=== PATIENT | female | born 1935 | race African-American/Black ===

== ENCOUNTER 2020-03-02 03:38 | Emergency (ER) | payer OTHER ==
[~2020-03-02] VITALS: Ht 160 cm; Wt 49.9 kg
--- NOTE | 2020-03-02 03:41 | NUR ---
BIBRA 860 FROM A LANDROMAT. PT SEEMS CONFUSED AND UNABLE TO PROVIDE A DETAILED MEDICAL HX. CURRENTLY DENIED ANY PAIN OR DISCOMFORT; PT TO BED 11, AOX1, DENIES ANY SOB/CP. VSS NAD NOTED, PENDING ER PROVIDER EVAL
--- NOTE | 2020-03-02 04:15 | NUR ---
PER RA PT M[place]IVING AT [address] [id number] CALLED [facility] TO INQUIRE W. NO ANSWER.
[2020-03-02 04:33] LABS: BASOPHILS # (AUTO) 0.1 /CMM (0.0-0.2); BASOPHILS % (AUTO) 1.7 % (0.0-2.0); EOSINOPHILS % (AUTO) 0.1 % (0.0-6.0); HEMATOCRIT 45 % (33-45); HEMOGLOBIN 14.7 g/dL (11.5-14.8); LYMPHOCYTES # (AUTO) 0.4 /CMM (0.8-4.8); LYMPHOCYTES % (AUTO) 5.7 % (20.0-44.0); MEAN CORPUSCULAR HGB CONC 33 g/dl (31.0-36.0); MEAN CORPUSCULAR VOLUME 88 fL (82-100); MONOCYTES # (AUTO) 0.3 /CMM (0.1-1.30); MONOCYTES % (AUTO) 4.7 % (2.0-12.0); NEUTROPHILS # (AUTO) 6.4 /CMM (1.8-8.9); NEUTROPHILS % (AUTO) 87.8 % (43.0-81.0); PLATELET COUNT (AUTO) 202 /CMM (150-450); RED BLOOD CELL COUNT(AUTO) 5.08 MIL/uL (4.0-5.2); WHITE BLOOD COUNT (AUTO) 7.3 K/uL (4.3-11.0)
[2020-03-02 04:43] LABS: BILIRUBIN,URINE NEGATIVE (NEGATIVE); BLOOD, URINE TRACE-INTA Ery/uL (NEGATIVE); COLOR,URINE YELLOW (YELLOW); KETONES,URINE NEGATIVE (NEGATIVE); LEUKOCYTE ESTERASE ,URINE TRACE (NEGATIVE); NITRITE, URINE NEGATIVE (NEGATIVE); PH,URINE 6.5 (5.0-8.0); PROTEIN,URINE TRACE mg/dl (NEGATIVE); UGLUCOSE NEGATIVE (NEGATIVE); UROBILINOGEN,URINE 0.2 EU/dL (0.2)
[2020-03-02 04:43] LABS: CALCIUM, SERUM 10.3 mg/dL (8.5-10.1); CARBON DIOXIDE 26 mmol/L (21-32); CHLORIDE 102 mmol/L (98-107); CREATININE 0.9 mg/dL (0.6-1.3); GLUCOSE 112 mg/dL (74-106); POTASSIUM 3.7 mmol/L (3.5-5.1); SERUM AMMONIA 7 umol/L (11-32); SODIUM SERUM 140 mmol/L (136-145); UREA NITROGEN, BLOOD 17 mg/dL (7-18)
[2020-03-02 04:48] LABS: ACETAMINOPHEN < 10 ug/ml (10-30); ALANINE AMINOTRANSFERASE 22 U/L (12-78); ALCOHOL, BLOOD < 3 mg/dL (0-0); ALKALINE PHOSPHATASE 88 U/L (46-116); ASPARTATE AMINOTRANSFERASE 25 U/L (15-37); BILIRUBIN,DIRECT 0.2 mg/dL (0.0-0.2); BILIRUBIN,TOTAL 0.7 mg/dL (0.2-1.0); TOTAL PROTEIN, SERUM 9.2 g/dL (6.4-8.2)
[2020-03-02 04:55] LABS: THYROID STIMULATING HORMONE 2.877 uIU/mL (0.358-3.74)
[2020-03-02 05:00] LABS: APPEARANCE,URINE HAZY (CLEAR)
[2020-03-02 05:02] LABS: RBC,URINE 0-2 /HPF (0-2)
[2020-03-02 05:03] LABS: BACTERIA,URINE None seen /HPF (None Seen); SQUAMOUS EPITHELIAL CELL,UR Few /HPF (None Seen)
--- NOTE | 2020-03-02 05:39 | NUR ---
CALLED MAINE FOR CT READ
--- NOTE | 2020-03-02 07:01 | NUR ---
Patient is resting comfortably in bed with eyes closed. Easily aroused. VSS
--- NOTE | 2020-03-02 08:14 | NUR ---
MD MADE AWARE OF BLOOD PRESSURE
[2020-03-02] MEDS ORDERED: LISINOPRIL (10MG) 10 MG TABLET PO SCH (09:30)
--- NOTE | 2020-03-02 09:46 | NUR ---
SW GYPSY AT BEDSIDE
--- NOTE | 2020-03-02 10:05 | NUR ---
Patient is forgetful. Patient reports that she believes that she was in her room. Patient believes that she was in an assisted living facility. SW to attempt to find the proper facility for this patient.
--- NOTE | 2020-03-02 10:07 | NUR ---
Per nursing notes, patient was found near [facility]. [address] [facility], [place] [address] . SW to follow up with trust advisor.
--- NOTE | 2020-03-02 10:08 | NUR ---
Claudia from [facility]. [address] [place] [address] confirmed that this patient is a resident at the facility. Per Claudia, Claudia is unable to provide emergency contact number. This SW provided call back number for emergency contact to call this SW.
--- NOTE | 2020-03-02 10:09 | NUR ---
Patient Daughter Wild Galdamez called this SW back. SW explained the situation. Per Daughter, patient does have confusion and memory loss. Patient daughter to come to [facility].
--- NOTE | 2020-03-02 10:16 | NUR ---
PER JERAMY, SHE SPOKE TO THE DAUGHTER AND WILL PICK HER UP.
--- NOTE | 2020-03-02 10:21 | NUR ---
Dr. Han made aware patient daughter will burr picker patient. Daughter Wild is on her way. Patient is aware and stated "I will do anything for this not to happen to me, this makes me nervous." Patient and SW discussed possible plan of action to move in with daughter or move to an assisted living facility depending on what is needed.
--- NOTE | 2020-03-02 11:22 | NUR ---
katarzyna hamm [phone] daughter
--- NOTE | 2020-03-02 12:20 | NUR ---
IV removed. Catheter intact and site benign. Pressure and 4x4 applied to site. No bleeding noted. Patient discharged to home with daughter Wild Nuno [phone] in stable condition. Written and verbal after care instructions given. Patient verbalizes understanding of instruction.
[2020-03-02 12:22] VITALS: BP 154/89
== END 2020-03-02 12:23 | disposition home or self-care (01) ==
LOC: ER 03:40
DX: F03.90 Unspecified dementia, unspecified severity, without behavioral disturbance, psychotic disturbance, mood disturbance, and anxiety (principal); R41.0 Disorientation, unspecified; I10 Essential (primary) hypertension; Z98.890 Other specified postprocedural states
CPT/HCPCS: 36415; 70450-TC; 71045-TC; 80048-TC; 80076-TC; 81000-TC; 82140-TC; 84443-TC; 85025-TC; G0480

== ENCOUNTER 2020-10-11 17:52 | Inpatient (IN) | payer OTHER ==
[~2020-10-11] VITALS: Ht 157.5 cm; Wt 39.0 kg
--- NOTE | 2020-10-11 18:12 | NUR ---
CARI AND [employer] TO ER BED 12. PT AWAKE, ALERT BUT CONFUSED. NOT IN RESP DISTRESS. AMBULATORY. BROUGHT ON FOR GRAVE DISABILITY AND DANGER TO SELF D/T BEING FOUND WALKING FAR AWAY FROM HER ASSISTED LIVING. UPON [employer] RETURNING PT TO HER ASSISTED LIVING PT DENIES THAT SHE LIVES THERE DESPITE HAVING HER PHOTOES THERE. PT IS COMPLIANT AND COOPERATIVE. PT IS BEING PLACED ON A 5150 HOLD FOR GRAVE DISABILITY AND DANGER TO SELF. SITTER IS WITH VISUAL SIGHT. WAS AT THE BEDSIDE FOR EVAL. ORDERS RECEIVED
--- NOTE | 2020-10-11 18:18 | NUR ---
XRAY AT BEDSIDE
[2020-10-11] MEDS ORDERED: ERGO500014 PO (18:44)
[2020-10-11] MEDS ORDERED: ATEN50TA PO (18:44)
--- NOTE | 2020-10-11 18:52 | NUR ---
5150 WRITTEN ON 10/11/20 @ 1715
[2020-10-11 19:24] LABS: BILIRUBIN,URINE NEGATIVE (NEGATIVE); COLOR,URINE YELLOW (YELLOW); LEUKOCYTE ESTERASE ,URINE SMALL (NEGATIVE); NITRITE, URINE NEGATIVE (NEGATIVE); PH,URINE 7.5 (5.0-8.0); PROTEIN,URINE NEGATIVE (NEGATIVE); UGLUCOSE NEGATIVE (NEGATIVE); UROBILINOGEN,URINE 0.2 EU/dL (0.2)
[2020-10-11 19:32] LABS: ALANINE AMINOTRANSFERASE 39 U/L (12-78); ALCOHOL, BLOOD < 3 mg/dL (0-0); ALKALINE PHOSPHATASE 76 U/L (46-116); ASPARTATE AMINOTRANSFERASE 31 U/L (15-37); BILIRUBIN,DIRECT 0.1 mg/dL (0.0-0.2); BILIRUBIN,TOTAL 0.5 mg/dL (0.2-1.0); CALCIUM, SERUM 9.7 mg/dL (8.5-10.1); CARBON DIOXIDE 29 mmol/L (21-32); CHLORIDE 109 mmol/L (98-107); CREATININE 0.9 mg/dL (0.6-1.3); GLUCOSE 104 mg/dL (74-106); POTASSIUM 4.2 mmol/L (3.5-5.1); SODIUM SERUM 146 mmol/L (136-145); TOTAL PROTEIN, SERUM 7.1 g/dL (6.4-8.2); UREA NITROGEN, BLOOD 8 mg/dL (7-18)
[2020-10-11 19:51] LABS: BASOPHILS % (AUTO) 0.3 % (0.0-2.0); EOSINOPHILS % (AUTO) 0.1 % (0.0-6.0); HEMATOCRIT 39 % (33-45); HEMOGLOBIN 12.9 g/dL (11.5-14.8); LYMPHOCYTES # (AUTO) 1.3 /CMM (0.8-4.8); LYMPHOCYTES % (AUTO) 20.7 % (20.0-44.0); MEAN CORPUSCULAR HGB CONC 33 g/dl (31.0-36.0); MEAN CORPUSCULAR VOLUME 88 fL (82-100); MONOCYTES # (AUTO) 0.5 /CMM (0.1-1.30); MONOCYTES % (AUTO) 8.5 % (2.0-12.0); NEUTROPHILS # (AUTO) 4.4 /CMM (1.8-8.9); NEUTROPHILS % (AUTO) 70.4 % (43.0-81.0); PLATELET COUNT (AUTO) 169 /CMM (150-450); RED BLOOD CELL COUNT(AUTO) 4.49 MIL/uL (4.0-5.2); WHITE BLOOD COUNT (AUTO) 6.2 K/uL (4.3-11.0)
[2020-10-11] MEDS ORDERED: ASPIRIN 81 MG TAB.CHEW ONE (19:58)
--- NOTE | 2020-10-11 19:58 | NUR ---
DR. LONG (CARDIO HIDE MILL WORKER) PAGED PER REQUEST
[2020-10-11] MEDS ORDERED: ASPIRIN 81 MG TAB.CHEW PO ONE (20:00)
[2020-10-11 20:02] LABS: BACTERIA,URINE 1+ /HPF (None Seen); SQUAMOUS EPITHELIAL CELL,UR 0-2 /HPF (None Seen)
--- NOTE | 2020-10-11 20:07 | NUR ---
DR. RODRIGUEZ SPEAKING WITH CARDIO ELECTROPLATER AUTOMATIC, DR. LONG
[2020-10-11 20:13] LABS: ACETAMINOPHEN 0 ug/ml (10-30)
--- NOTE | 2020-10-11 20:31 | NUR ---
Afsaneh katz in [facility] - 10/11/[address] RODRIGUEZ SPEAKING WITH DAVID AGUIRRE, TERRANCE REGARDING ADMISSION
--- NOTE | 2020-10-11 20:34 | NUR ---
Wild Nuno [phone]
--- NOTE | 2020-10-11 21:03 | NUR ---
SPOKE WITH TIMI, CUPOLA TAPPER FOR CLINNICAL INFORMATION. WILL CALL BACK
--- NOTE | 2020-10-11 21:56 | NUR ---
PER [place] CLINICAL ACCOUNT MANAGER EVIN, VERBAL AUTH TO ADMIT TO [facility]
--- NOTE | 2020-10-11 21:58 | NUR ---
DR. RODRIGUEZ SPEAKING WITH DR. VARGAS REGARDING ADMISSION
[2020-10-11] MEDS ORDERED: ACETAMINOPHEN 325 MG TABLET PO PRN (22:30)
--- NOTE | 2020-10-12 01:06 | NUR ---
CALLED AFTER HOUR PHARMACY TO VERIFY THE ADMITTING ORDERS
[2020-10-12] MEDS ORDERED: CEFTRIAXONE 1 G in IV D5W 50 ML IV SCH (01:08)
[2020-10-12] MEDS ORDERED: ATORVASTATIN 40 MG TABLET PO SCH (01:09)
[2020-10-12] MEDS ORDERED: ENOXAPARIN SODIUM 40 MG/0.4 ML DISP.SYRIN SQ SCH ×2 (02:00→21:00)
[2020-10-12] MEDS ORDERED: ENOXAPARIN SODIUM 40 MG/0.4 ML DISP.SYRIN SQ ONE (02:02)
[2020-10-12] MEDS ORDERED: ATORVASTATIN 40 MG TABLET ONE (02:02)
[2020-10-12] MEDS ORDERED: CEFTRIAXONE 1GM BAG (ER ONLY) 50 ML IV ONE (02:02)
--- NOTE | 2020-10-12 02:29 | NUR ---
PT AMBULATED TO THE RESTROOM AND BACK. DAUGHTER AT BEDSIDE.
--- NOTE | 2020-10-12 04:51 | NUR ---
SITTER REMAINS AT BEDSIDE. PT RESTING COMFORTABLY. VSS.
[2020-10-12 05:37] LABS: THYROID STIMULATING HORMONE 1.604 uIU/mL (0.358-3.74)
--- NOTE | 2020-10-12 06:29 | NUR ---
REPORT GIVEN TO GALILEA LUA FOR YANG
--- NOTE | 2020-10-12 07:03 | NUR ---
PT TRANSFERED PER ACLS PROTOCOL
--- NOTE | 2020-10-12 07:30 | NUR ---
RN ADMITTING NOTE PT TRANSPORTED BY ROSE MARIE TO UNIT FROM ED AT THIS TIME, RECEIVED REPORT FROM MARKUS SPENCER WITH PERIODS OF CONFUSION AND FORGETFULNESS, PT UNABLE TO COMMUNICATE HER NEEDS, NO SOB OF NOTED, NO C/O PAIN AT HIS TIME, NO S/S OF APPARENT DISTRESS NOTED, RESPIRATIONS EVEN AND UNLABORED, ACTIVE BOWEL SOUNDS AUSCULTATED THROUGHOUT, ABDOMEN IS NON DISTENDED. SKIN IS INTACT, WARM TO TOUCH, CAP REFILL LESS THAN 3 SECS, PULSES PRESENT BILATERALLY, GOOD CIRCULATION NOTED , IV ACCESS NOTED IN RAC G#20 INTACT, PATENT AND FLUSHING WELL. PATIENTS BELONGING ACCOUNTED FOR.
--- NOTE | 2020-10-12 08:00 | NUR ---
NOTED PT WITH BP OF 156/73, HR 65, RR 20, O2 SAT 98% ON RA, PT ASYMPTOMATIC, NO ACUTE DISTRESS NOTED, NO SOB NOTED, NOTIFIED DR VARGAS, NO NEW ORDER AT THIS TIME, WILL CONTINUE TO MONITOR PT
[2020-10-12] MEDS ORDERED: ASPIRIN EC 81 MG TABLET.DR PO ONE (09:00)
[2020-10-12] MEDS ORDERED: METOPROLOL TARTRATE 25 MG TABLET PO SCH (09:00)
[2020-10-12] MEDS ORDERED: ERGOCALCIFEROL (VITAMIN D 2) 50,000 UNIT CAPSULE PO SCH (09:00)
--- NOTE | 2020-10-12 09:06 | NUR ---
PT SEEN AND EVALUATED BY DR NORMA VARGAS, DAUGHTER JENNIFER LEIGH ANN WITH NEW ORDERS MADE NOTED AND CARRIED OUT.
[2020-10-12] MEDS ORDERED: NITROGLYCERIN 0.4 MG/TAB BOTTLE SL ONE (09:30)
[2020-10-12] MEDS ORDERED: AMLODIPINE BESYLATE 2.5 MG TABLET PO SCH (09:30)
[2020-10-12] MEDS ORDERED: LORAZEPAM INJ 2 MG/ML VIAL IV PRN (09:30)
--- NOTE | 2020-10-12 09:40 | NUR ---
PER DR VARGAS, ORDERED ATIVAN IV PRIOR TO CTA X1 DOSE, ATIVAN IV NOT GIVEN PT/DAUGHTER JENNIFER AT BED SIDE REFUSED, PT STATED SHE WILL KEEP STILL AND FOLLOW UP INSTRUCTION DURING TEST
--- NOTE | 2020-10-12 09:44 | NUR ---
PT TRANSPORTED FOR CTA IN STABLE CONDITION
[2020-10-12] MEDS ORDERED: IOHEXOL-350 100 ML VIAL IV ONE (09:47)
[2020-10-12] MEDS ORDERED: IV NS 0.9% 250 ML IV ONE (09:47)
[2020-10-12] MEDS ORDERED: CT SWABBABLE VALVE TRANS SET 1 EA INFUS.SET MC ONE (09:47)
[2020-10-12] MEDS ORDERED: METOPROLOL TARTRATE INJ 5 MG/5 ML AMPUL ONE ×4 (09:51→10:29)
[2020-10-12] MEDS ORDERED: NITROGLYCERIN 0.4 MG/TAB BOTTLE ONE (09:52)
[2020-10-12] MEDS: METOPROLOL TARTRATE INJ 5 MG/5 ML AMPUL IVP PRN ×5 (10:05→10:25)
--- NOTE | 2020-10-12 10:40 | NUR ---
PT CAME BACK FROM CTA IN STABLE CONDITION NOTED BP 142/55, OR 58, SINUS JAMES AT 57 ON TELE MONITOR, NOTIFIED DR VARGAS, CLARIFIED REGARDING HOLDING AMLODIPINE AND METOPROLOL SAID OK TO HOLD FOR METOPROLOL AND NORVASC FOR THIS AM DOSE
--- NOTE | 2020-10-12 11:35 | NUR ---
VERIFIED WITH DAUGHTER JENNIFER REGARDING VIT D2 SCHEDULE PER DAUGHTER " SHE TAKES VIT D2 EVERY MONDAY", NOTIFIED PHARMACY REGARDING MEDICATION SCHEDULE.
--- NOTE | 2020-10-12 12:01 | NUR ---
NOTIFIED DR OF PT BP AND HR, STILL HOLDING MEDICATION NORVASC AND METOPROLOL WAITING FOR DOCTORS VERIFICATION Addendum: 10/12/20 at 1215 by ANGIE VARGAS RN DISREGARD ABOUT NOTE, ERROR- WRONG ENTRY
[2020-10-12] MEDS ORDERED: hydrALAZINE HCL 50 MG TABLET PO SCH (13:30)
[2020-10-12] MEDS ORDERED: NITROGLYCERIN 30 GM TUBE TP SCH (13:30)
--- NOTE | 2020-10-12 15:35 | NUR ---
Producer Arborist Manager consult: Producer Arborist Manager consult requested to discuss plan of care and ensure safe discharge plan. Patient is a 85-year-old, female. SW met with patient at her bedside on the med-surg unit. Patient was alert and oriented x4. Patient was upright and speaking to her family. Patient's daughter, Wendy, , was at the bedside. Per patient's daughter, the patient will return to her prior living arrangement [address] [facility], [place] [address]. Wendy stated that the patient will be cared for 28/11 by the patient's family. Wendy provided SW with contact information for patient's other daughter, Mario, incase Wendy is busy. Patient stated that she is currently receiving SSI. Patient is ambulatory. Patient reported no history of substance abuse. Patient reported no history of mental illness. Patient denied suicidal or homicidal ideation. SW offered patient and patient's family senior resources. Patient and patient's family accepted the resources and thanked SW stating that they will follow up with the resources as needed. Patient will return to her prior living arrangement with family. Patient's daughter, Wendy stated that she will be providing transportation. PLAN: Patient will return to her prior living arrangement with family. No further SS intervention at this time, however, SW will remain available as needed. Senior resources: ABUSE PREVENTION: ELDER ABUSE HOTLINE (28/11) ADULT PROTECTIVE SERVICES HOTLINE LONG-TERM CARE [facility] Region AREA ON AGING (HOTLINE) ADULT DAY HEALTH CARE CARE CENTERS: Private pay or Medi-corona funded adult day care [facility] , [facility] , [facility] Adult Care Center , [facility] Adult Day Health Care , [facility] Adult Day Health Care , [facility] Adult Daycare Center , [facility] , [place] [facility] , [place] ALZHEIMERS DISEASE/DEMENTIA: Alzheimers Association Helpline [facility] Chapter www.alz.org/[facility] Department of Aging www.lacity.org Family Caregiver [place] www.caregiver.org [place] Caregiver Resources Center/Family Support www.[facility] hospital[facility].org CANCER RESOURCES: [place] Cancer Society www.cancer.org Cancer Support Community www.CancerSupportVvsb.org: CancerCare www.cancercare.org [facility] Cancer Support Center www.[facility].org [facility] HEALTH ASSOCIATIONS: AARP www.aarp.org ALS Association (ask for Zoe) www.als.org [place] Diabetes Association www.diabetes.org [place] Heart Association www.heart.org [place] Lung Association www.lungusa.org [place] Parkinson Disease Association www.apdaparkinson.org Bh[place]anese [place] , www.redcross.org Arthritis Foundation www.arthritis.org Crohns & Colitis Foundation of Bhutanese www.ccfa.org/chapters/christopher National Multiple Sclerosis Society www.nationalmssociety.org Myasthenia Gravis Foundation www.myasthenia-ca.org National Stroke Association www.stroke.org CONSERVATORSHIP & GUARDIANSHIP: AARP Martine Alvarez Legal Services Center for Health Care Rights Eldercare Information and Referral Physician Advisor Foundation [facility]: [facility] Bar Referral Service [facility] Legal Services Office of the Public Guardian [place] EYESIGHT DISORDER RESOURCES: [place] Macular Degeneration Foundation [facility] www.[facility].org GRIEF AND BEREAVEMENT RESOURCES: The Gathering Place , [facility] THE [place] Connection , [facility] , [place] HEARING DISORDER RESOURCES: [place] Telephone Access Program Deaf and Disabled Telecommunications Program www.ddtp.cpu.ca.gov HearRx Hearing Centers ([place]) Better Hearing Systems , [place] GLAD ([facility] Agency on Deafness) V/ TTY; Chairman President And Chief Executive Officer , [facility] Hearing [facility] -low income hearing aid assistance www.[facility] westringfoundation.org [place] Hearing Care , [place]undra HELP AT HOME CAREGIVER SUPPORT: In Home Support Services (Must have Medi-Corona to be eligible) *Ask for a list of agencies that provide services to assist with care in the home. Local Senior Centers also have listings of care providers. HOME SAFETY MODIFICATIONS AND EQUIPMENT: Senior centers have additional referrals. [place] Housing and Community Investment Dept. Handyworker Program (low income) or Visit http://hcidla.[facility].org/rhg-pytdqd-da for more information National Seating and Mobility and/or ; Forever Active www.StereomoodverVelo Media.[place] Stay Home Safe www.Stayhomesafe.[place] LIFE ALERT RESPONSE SYSTEM: Desecuritrex Services 973-222-1064 www. Millennial Media Life Alert 015-674-0728 www.Intertainment Media Life Station 336-523-6102 www.tzonebd.comation.[place] Safe Return 972-574-9498 www.alz.or/safereturn Cell Phones for Seniors www.BOLETUS NETWORK MEALS AND FOOD PROGRAMS: [place] Meals on Wheels [phone] [place] Meals on Wheels [phone] [facility] [phone] Pioneer to the Homebound [phone] [place] to the Homebound [phone] [facility] to the Homebound [phone] [facility] to the Homebound [phone] Janusz Navneet Anderson [phone] [facility] [phone] ONE Generation [phone] [facility] [phone] [facility] [phone] Meals on Wheels [phone] For all ages: $6.85/ meal w side. Delivered M-F from 10 am-1pm. Application and payment is done over the phone. Frozen meals available for weekends. Emergency Food [facility] [phone] [facility] Producer Arborist Manager [phone] [facility] [phone] [facility]- Brown bag lunches [phone] [facility] [phone] MEAL/GROCERY DELIVERY PROGRAMS: Jessica [facility] Gourmet Meals [phone]- [facility] [phone]- [facility] Magic Kitchen [phone] Moms Meals [phone] (ask Huizar for Discount Select grocery stores may provide delivery. MEDICAL INSURANCE SUPPORT SERVICES: Center for Health Care Rights 169-583-1993 Health Insurance Counseling/Advocacy Programs (HICAP)-Must have Medicare. Offers counseling for Medi-Corona eligibility 125-387-5768 Department of Public Producer Arborist Manager [phone] www.[facility].ca.gov Medicare 729-301-6584 www.socialsecurity.org Social Security [phone] SENIOR ACTIVITY PROGRAMS: *Contact a local senior center, adult school, recreation facility or community college for education, fitness, recreation, and social programs. Aquatic Therapy and Adapted Exercise programs through [facility] [phone] Encore at [facility] [phone] www.[facility] medical center/encore U- Senior Friends [phone] [place] Senior Programs [phone] www.oasisnet.org Suddenly 65 www.jclzfiqb20.[place] SENIOR CENTERS: [facility] [phone] [facility] Bangs [phone] [facility] [phone] [facility] [phone] [facility] [phone] [facility] [phone] [facility] [phone] [facility] [phone] One [facility] [phone] [facility] [phone] [facility] [phone] [facility] [phone] TRANSPORTATION: Local [facility] may have applications for transportation programs and additional resources. ACCESS Services [phone] Transportation for seniors and disabled persons 7 days a week requiring 254 hr. advance reservation. Must apply and register for program venkata eligible. CITY RIDE [phone] or [phone] Transportation for seniors and persons with ADA card/metro disabled card in the [facility]. M-F only. Must register for services. ONE GENERATION [phone] Serves 65 years + in conjunction with city ride program. Must be registered with both programs. A to B Transport [phone] Provides wheelchair/gurney van service. Adult Medical Transport [phone] Accepts Medi-corona with prior authorization. Care Van [phone] Provides wheelchair Transport. [facility] Wide Transportation [phone] Provides gurney service [facility] Emergency Department [phone] Gurney Transport. [facility] Transportation [phone] wheelchair & gurney transport [facility] Transportation [phone] wheelchair & gurney transport [place] Non-Emergency Transport [phone] wheelchair & gurney transport [facility] Living Center [phone] Short Term Transportation primarily for adults with disabilities on social security income. Nominal fee may apply and a reservation is required. City Cab [phone] or [phone] [facility] [phone] [place] [address] Services -[phone] For additional programs & services
[2020-10-12 16:00] VITALS: BP 108/62
--- NOTE | 2020-10-12 17:00 | NUR ---
RESPIRATORY CARE SPECIALIST NOTE PT DISCHARGED HOME WITH DAUGHTER WITH STABLE VITAL SIGNS, NO ACUTE DISTRESS NOTED, NO SOB, DISCHARGE INSTRUCTIONS GIVEN TO THE DAUGHTER JENNIFER INCLUDING NEW PRESCRIPTION AND FOLOW UP WITH PRIMARY DOCTOR IN 1 WEEK, VERABALIZE UNDERSTANDING. ALL BELONGINGS ACOOUNTED FOR. NEEDS ATTENDED AND SKIN IS INTACT, IV ACCESS REMOVED, NO BLEEDING, SWELLING OR REDNESS NOTED, ASSISTED PT TO THE LOBBY FLOOR SCRAPER WITH PRIVATE CAR WITH DAUGHTERS JENNIFER IN STABLE CONDITION. PT A/OX2.
[2020-10-14] MEDS ORDERED: ERGOCALCIFEROL (VITAMIN D 2) 50,000 UNIT CAPSULE PO SCH (09:00)
== END 2020-10-12 17:00 | disposition home or self-care (01) | DRG 689 ==
LOC: ER 18:04 → TRANSITION 10-12 01:13 → TELE 10-12 05:24
PROVIDERS: ADMIT Internal Medicine; ATTEND Internal Medicine
DX: N39.0 Urinary tract infection, site not specified (principal); E43 Unspecified severe protein-calorie malnutrition; Z68.1 Body mass index [BMI] 19.9 or less, adult; I10 Essential (primary) hypertension; Z73.6 Limitation of activities due to disability; E78.5 Hyperlipidemia, unspecified; F03.90 Unspecified dementia, unspecified severity, without behavioral disturbance, psychotic disturbance, mood disturbance, and anxiety; Z87.891 Personal history of nicotine dependence; Z20.822 Contact with and (suspected) exposure to COVID-19
CPT/HCPCS: 36415; 70450-TC; 71045-TC; 75574; 80048-TC; 80061-TC; 80076-TC; 81001; 84443-TC; 84484-TC; 85025-TC; 87081-TC; 87086-TC; 93307-TC; C9803; G0378; G0480; J0696; J1650; J3490; J7050; J7060; Q9967